=== PATIENT | male | born 1960 ===

== ENCOUNTER → 2021-09-15 | Outpatient (CLI) | payer OTHER ==
[~2021-09-15] MED LIST: HYDR-3714 PO; LEVO125T6 PO; TMSL.4C PO
== END ==
LOC: PREOP 05:36
PROVIDERS: ATTEND Specialist
DX: Z01.818 Encounter for other preprocedural examination (principal)

== ENCOUNTER 2021-09-18 10:10 | Day surgery (SDC) | payer OTHER ==
[~2021-09-18] VITALS: Ht 162.6 cm; Wt 80.5 kg
[2021-09-18] MEDS ORDERED: TETRACAINE 0.5% OPHTH SOLN 4 ML BTL (SINGLE DOSE ONLY) OU ONE (10:30)
[2021-09-18] MEDS ORDERED: TIMOLOL MALEATE 0.5% 5 ML (TIMOPTIC) BTL OU ONE (10:30)
[2021-09-18] MEDS ORDERED: PILOCARPINE 4% OPHTH SOLN (ISOPTO CARPINE) 15 ML BTL OP ONE (10:30)
[2021-09-18 10:40] VITALS: BP 104/69
--- NOTE | 2021-09-18 12:49 | Ophthalmologist Pre-Op Note ---
Pre-Operative Progress Note H&P Reviewed The H&P was reviewed, patient examined and no changes noted. Date H&P Reviewed: Sep 18, 2021 Time H&P Reviewed: 11:30 Pre-Op Dx Narrow angle glaucoma, Right Eye SHABANA BRAXTON MD Sep 18, 2021 12:49
--- NOTE | 2021-09-18 12:51 | Ophthalmology Operative Report ---
YAG Iridotomy PREOPERATIVE DIAGNOSIS: Narrow angle glaucoma, Right Eye POSTOPERATIVE DIAGNOSIS: Narrow angle glaucoma, Right Eye PROCEDURE: YAG Iridotomy right eye SURGEON: Juan Ramon Braxton ANESTHESIA: Topical anesthesia COMPLICATIONS: None ESTIMATED BLOOD LOSS: Minimal DESCRIPTION OF PROCEDURE: After proper informed consent was obtained, that patients right eye received one drop of tetracaine and one drop of pilocarpine 4%. The patient received 1 drop of timolol 0.5% five minutes after the pilocarpine. The iridotomy lens was placed on the patients eye. After this the patient was moved to the YAG laser and using a power of [ 7.0] millijoules [4 ] bursts were used to fashion a patent iridotomy. The patient tolerated the procedure well without complications and the patients pressure was [ 15] shortly after the laser JUAN RAMON BRAXTON MD Sep 18, 2021 12:51
== END 2021-09-18 12:47 | disposition home or self-care (01) ==
LOC: SDC 10:10
PROVIDERS: ATTEND Specialist
DX: H40.20X0 Unspecified primary angle-closure glaucoma, stage unspecified (principal)

== ENCOUNTER → 2021-09-29 | Outpatient (CLI) | payer OTHER | LOC: PREOP 05:37 | PROVIDERS: ATTEND Specialist | DX: Z01.818 Encounter for other preprocedural examination (principal) ==

== ENCOUNTER 2021-10-02 09:25 | Day surgery (SDC) | payer OTHER ==
[~2021-10-02] VITALS: Ht 162.4 cm; Wt 80.5 kg
[2021-10-02 09:59] VITALS: BP 99/70
[2021-10-02] MEDS ORDERED: PILOCARPINE 4% OPHTH SOLN (ISOPTO CARPINE) 15 ML BTL OP ONE (10:00)
[2021-10-02] MEDS ORDERED: TETRACAINE 0.5% OPHTH SOLN 4 ML BTL (SINGLE DOSE ONLY) OU ONE (10:00)
[2021-10-02] MEDS ORDERED: TIMOLOL MALEATE 0.5% 5 ML (TIMOPTIC) BTL OU ONE (10:00)
--- NOTE | 2021-10-02 10:46 | Ophthalmology Operative Report ---
YAG Iridotomy PREOPERATIVE DIAGNOSIS: Narrow angle glaucoma, Left Eye POSTOPERATIVE DIAGNOSIS: Narrow angle glaucoma, Left Eye PROCEDURE: YAG Iridotomy left eye SURGEON: Juan Ramon Braxton ANESTHESIA: Topical anesthesia COMPLICATIONS: None ESTIMATED BLOOD LOSS: Minimal DESCRIPTION OF PROCEDURE: After proper informed consent was obtained, that patients left eye received one drop of tetracaine and one drop of pilocarpine 4%. The patient received 1 drop of timolol 0.5% five minutes after the pilocarpine. The iridotomy lens was placed on the patients eye. After this the patient was moved to the YAG laser and using a power of [7.0 ] millijoules [5 ] bursts were used to fashion a patent iridotomy. The patient tolerated the procedure well without complications and the patients pressure was [15 ] shortly after the laser JUAN RAMON BRAXTON MD Oct 02, 2021 10:46
--- NOTE | 2021-10-02 10:46 | Ophthalmologist Pre-Op Note ---
Pre-Operative Progress Note H&P Reviewed The H&P was reviewed, patient examined and no changes noted. Date H&P Reviewed: Oct 02, 2021 Time H&P Reviewed: 10:22 Pre-Op Dx PREOPERATIVE DIAGNOSIS: Narrow angle glaucoma, Left Eye POSTOPERATIVE DIAGNOSIS: Narrow angle glaucoma, Left Eye PROCEDURE: YAG Iridotomy left eye SURGEON: Juan Ramon Braxton ANESTHESIA: Topical anesthesia COMPLICATIONS: None ESTIMATED BLOOD LOSS: Minimal DESCRIPTION OF PROCEDURE: After proper informed consent was obtained, that patients left eye received one drop of tetracaine and one drop of pilocarpine 4%. The patient received 1 drop of timolol 0.5% five minutes after the pilocarpine. The iridotomy lens was placed on the patients eye. The patient was then placed at the argon laser and using a power of [ ] milliwatts, duration of [ ], and spot size of [ ], [ ] burst were used to flatten the iris. After this the patient was moved to the YAG laser and using a power of [ ] millijoules [ ] bursts were used to fashion a patent iridotomy. The patient tolerated the procedure well without complications and the patients pressure was [ ] shortly after the laser JUAN RAMON BRAXTON MD Oct 02, 2021 10:46
== END 2021-10-02 11:12 | disposition home or self-care (01) ==
LOC: SDC 09:25
PROVIDERS: ATTEND Specialist
DX: H40.20X0 Unspecified primary angle-closure glaucoma, stage unspecified (principal)

== ENCOUNTER 2022-05-19 05:37 | Outpatient (CLI) | payer OTHER ==
[~2022-05-19] VITALS: Ht 162.6 cm; Wt 77.6 kg
[2022-06-24] MEDS ORDERED: LEVO75CA5 PO (17:35)
[2022-06-24] MEDS ORDERED: METF-397 PO (17:35)
[2022-06-24] MEDS ORDERED: CHOL400T PO (17:35)
[2022-06-24] MEDS ORDERED: CETI10TA17 PO (17:35)
[2022-06-24] MEDS ORDERED: MELO10CA3 PO (17:35)
[2022-06-24] MEDS ORDERED: ATOR40TA70 PO (17:35)
== END 2022-06-24 17:50 | disposition home or self-care (01) ==
LOC: PREOP 05:37
PROVIDERS: ATTEND Surgery
DX: Z01.818 Encounter for other preprocedural examination (principal)

== ENCOUNTER 2022-06-28 09:19 | Day surgery (SDC) | payer OTHER ==
[~2022-06-28] VITALS: Ht 162.6 cm; Wt 77.6 kg
[~2022-06-28 09:19] MED LIST changes: +ATOR40TA70 PO; +CETI10TA17 PO; +CHOL400T PO; +LEVO75CA5 PO; +MELO10CA3 PO; +METF-397 PO
[2022-06-28] MEDS ORDERED: LACTATED RINGERS 1,000 ML IV STA (09:28)
--- NOTE | 2022-06-28 09:48 | Progress Note-Pre Operative ---
Pre-Operative Progress Note Date of Available H&P: Apr 27, 2022 Date H&P Reviewed: June 28, 2022 Time H&P Reviewed: 09:42 History & Physical: H&P Reviewed, Patient Examed, No changes noted Pre-Operative Diagnosis: Screening colon BILL FERRIS DO June 28, 2022 09:48
[2022-06-28 09:49] VITALS: BP 131/94
[2022-06-28] MEDS ORDERED: LACTATED RINGERS 1,000 ML IV ONE (10:08)
--- NOTE | 2022-06-28 11:06 | Progress Note-Post Operative ---
Post-Operative Progess Note Surgeon (s)/Bottom Liner (s) Surgeon BILL FERRIS DO Bottom Liner: LOVE Orta student Pre-Operative Diagnosis Screening colon Post-Operative Diagnosis Diverticula int hemorrhoids Procedure & Operative Findings Date of Procedure 06/28/22 Procedure Performed/Findings Colonoscopy PROCEDURE NOTE: After informed consent was obtained, the patient was brought to the endoscopy suite, placed in bed in left lateral decubitus position. He was administered IV sedation by the FOOD MANAGEMENT AIDE who then monitored his vitals the entire time, heart rate, blood pressure and pulse ox and the scope was inserted, pushed all the way to about 150 cm and pushed into the cecum, took a picture of appendiceal orifice and noted the ileocecal valve. Then slowly withdrew the scope insufflating to look circumferentially at the rodriguez starting in the cecum, up the ascending colon to the hepatic flexure, then down the transverse colon, splenic flexure, into the descending colon down in the sigmoid and then into the rectal vault and retroflexed the scope. Took picture of the internal hemorrhoids. The patient tolerated the procedure. He was recovered in endoscopy suite. Recommended for repeat colonoscopy in 10 years. Anesthesia Type IV sedation by FOOD MANAGEMENT AIDE Estimated Blood Loss Estimated blood loss (mL): scant Specimens/Packing Specimens Removed none BILL FERRIS DO June 28, 2022 11:06
--- NOTE | 2022-06-28 11:07 | Endoscopy Discharge Instruct ---
Endo Procedure/Findings Findings 1.: Diverticulosis 2.: Internal Hemorrhoids Discharge Instructions - Activity: You might feel a little sleepy until tomorrow. This is due to the medicine you received to relax you. Until tomorrow, you should: NOT drive a car, operate machinery or power tools. NOT drink any alcoholic beverages. NOT make any important decisions or sign importortant papers. Do not return to work until tomorrow, unless otherwise instructed. Resume previous activities tomorrow. Diet: Start by taking liquids. If you tolerate liquids, advance to solid food. 1.: Colonscopy in 10 years Notify Physician - If you experience excessive bleeding, unusual abdominal pain, fever, or chest pain, contact your doctor immediately. Follow-Up: Other Follow up in my office in one week BILL FERRIS DO June 28, 2022 11:07
[2022-06-28] MEDS ORDERED: PROPOFOL INJECTION 50 ML IV ONE (11:08)
--- NOTE | 2022-06-28 11:11 | Anesthesia-General Post-Op ---
MAC Patient Condition Mental Status/LOC: Same as Preop Cardiovascular: Satisfactory Nausea/Vomiting: Absent Respiratory: Satisfactory Pain: Controlled Complications: Absent Post Op Complications Complications None Follow Up Care/Instructions Patient Instructions None needed. Anesthesiology Discharge Order Discharge Order Patient is doing well, no complaints, stable vital signs, no apparent adverse anesthesia problems. No complications reported per nursing. AMISHA TRUJILLO CRNA June 28, 2022 11:11
[2022-06-28 11:13] VITALS: BP 106/79
[2022-06-28 11:18] VITALS: BP 109/78
[2022-06-28 11:20] VITALS: BP 116/81
== END 2022-06-28 11:42 | disposition home or self-care (01) ==
LOC: ENDO 09:19
PROVIDERS: ATTEND Surgery
DX: Z12.11 Encounter for screening for malignant neoplasm of colon (principal); K57.30 Diverticulosis of large intestine without perforation or abscess without bleeding; K64.8 Other hemorrhoids; E11.9 Type 2 diabetes mellitus without complications; Z79.84 Long term (current) use of oral hypoglycemic drugs; Z87.891 Personal history of nicotine dependence
CPT/HCPCS: 82947